=== PATIENT | male | born 1985 | race Two or more races ===

== ENCOUNTER 2018-10-16 00:37 | Emergency (ER) | payer BC, OTHER ==
[2018-10-16] MEDS: LORAZEPAM 2 MG INJ IM (01:31)
== END 2018-10-16 02:49 | disposition home or self-care (01) ==
LOC: E/R 00:37
DX: F12.980 Cannabis use, unspecified with anxiety disorder (principal); R40.2252 Coma scale, best verbal response, oriented, at arrival to emergency department; R40.2362 Coma scale, best motor response, obeys commands, at arrival to emergency department; R40.2142 Coma scale, eyes open, spontaneous, at arrival to emergency department; Z85.850 Personal history of malignant neoplasm of thyroid
CPT/HCPCS: 96372; 99284-25